=== PATIENT | male | born 1950 | race Caucasian/White ===

== ENCOUNTER 2017-07-08 10:22 | Day surgery (SDC) | payer MEDICARE, OTHER ==
[~2017-07-08] VITALS: Ht 165.1 cm; Wt 85.7 kg
[~2017-07-08 10:22] MED LIST: FENOFIBRATE40 MG PO; NEXIUM40 M1 PO; VITAMIN D2000 UNI1 PO
[2017-07-08 12:18] VITALS: BP 145/84
== END 2017-07-08 12:18 | disposition home or self-care (01) ==
LOC: ENDO 10:22 → ORM 17:00
PROVIDERS: ATTEND Internal Medicine Gastroenterology
PROC: 0DB48ZX Excision of Esophagogastric Junction, Via Natural or Artificial Opening Endoscopic, Diagnostic (ICD-10-PCS; principal; 2017-07-08)
PROC: 0DBH8ZX Excision of Cecum, Via Natural or Artificial Opening Endoscopic, Diagnostic (ICD-10-PCS; 2017-07-08)
PROC: 0DBL8ZX Excision of Transverse Colon, Via Natural or Artificial Opening Endoscopic, Diagnostic (ICD-10-PCS; 2017-07-08)
PROC: 0DBN8ZX Excision of Sigmoid Colon, Via Natural or Artificial Opening Endoscopic, Diagnostic (ICD-10-PCS; 2017-07-08)
DX: K21.0 Gastro-esophageal reflux disease with esophagitis (principal); Z12.11 Encounter for screening for malignant neoplasm of colon; K29.70 Gastritis, unspecified, without bleeding; K31.9 Disease of stomach and duodenum, unspecified; K63.5 Polyp of colon; D12.5 Benign neoplasm of sigmoid colon; D12.3 Benign neoplasm of transverse colon; K64.4 Residual hemorrhoidal skin tags; K64.8 Other hemorrhoids; K57.30 Diverticulosis of large intestine without perforation or abscess without bleeding; E78.00 Pure hypercholesterolemia, unspecified; C95.90 Leukemia, unspecified not having achieved remission; F17.210 Nicotine dependence, cigarettes, uncomplicated; Z86.010 Personal history of colon polyps

== ENCOUNTER 2017-08-21 12:08 | Emergency (ER) | payer MEDICARE, OTHER ==
[~2017-08-21] VITALS: Ht 165.1 cm; Wt 85.9 kg
[2017-08-21 12:40] LABS: HEMATOCRIT 45.3 % (39.0-50.0); HEMOGLOBIN 15.8 g/dl (14.0-18.0); IMMATURE GRANULOCYTES 0.2 % (0.0-1.0); MEAN CELL VOLUME 95.2 fL CALC (80.0-100.0); MEAN CORPUSCULAR HGB 33.2 pG CALC (26.0-32.0); MEAN CORPUSCULAR HGB CONC 34.9 g/L CALC (32.0-36.0); NEUT# 3.05 thou/uL (1.82-7.42); RED BLOOD COUNT 4.76 mill/uL (4.70-6.10); RED CELL DISTRI WIDTH 12.9 % (11.5-15.5)
[2017-08-21 12:57] LABS: ALBUMIN 4.2 g/dL (3.2-5.0); ALKALINE PHOSPHATASE 68 u/l (38-126); ANION GAP 17 (6-22 (CALC)); BILIRUBIN, TOTAL 0.8 mg/dL (0.0-1.4); BUN 13 mg/dL (8-23); BUN/CREATININE RATIO 12 (12-20 (CALC)); CALCIUM 11.9 mg/dL (8.4-10.2); CARBON DIOXIDE 20 mmol/l (22-30); CHLORIDE 110 mmol/l (95-108); GFR > 60 ML/MIN (>=60 (CALC)); GFR FOR AFR.AMER. > 60 ML/MIN (>=60 (CALC)); GLUCOSE 146 mg/dL (82-115); LIPASE 99 u/l (23-300); SGOT/AST 112 u/l (19-48); SGPT/ALT 184 u/l (11-66); SODIUM 142 mmol/l (137-146); TOTAL PROTEIN 6.9 g/dL (6.3-8.2)
[2017-08-21 16:11] VITALS: BP 138/70
== END 2017-08-21 16:13 | disposition home or self-care (01) ==
LOC: ED 12:08
PROVIDERS: Emergency Medicine
DX: R07.89 Other chest pain (principal); F17.210 Nicotine dependence, cigarettes, uncomplicated; Z85.72 Personal history of non-Hodgkin lymphomas

== ENCOUNTER 2019-02-07 10:25 | Observation (INO) | payer MEDICARE, OTHER ==
[~2019-02-07] VITALS: Ht 165.1 cm; Wt 89.0 kg
[~2019-02-07 10:25] MED LIST changes: -NEXIUM40 M1 PO
[2019-02-07] MEDS ORDERED: METFORMIN500 M2 PO (10:44)
[2019-02-07] MEDS ORDERED: NEXIUM40 M1 PO (10:45)
[2019-02-07 11:09] LABS: HEMATOCRIT 42.6 % (39.0-50.0); HEMOGLOBIN 14.5 g/dl (14.0-18.0); IMMATURE GRANULOCYTES 0.2 % (0.0-5.0); MEAN CELL VOLUME 94.2 fL CALC (80.0-100.0); MEAN CORPUSCULAR HGB 32.1 pG CALC (26.0-32.0); NEUT# 2.89 thou/uL (1.82-7.42); RED BLOOD COUNT 4.52 mill/uL (4.70-6.10); RED CELL DISTRI WIDTH 13.3 % (11.5-15.5)
[2019-02-07 11:32] LABS: ALBUMIN 4.5 g/dL (3.2-5.0); ALKALINE PHOSPHATASE 70 u/l (38-126); ANION GAP 13 (6-22 (CALC)); BILIRUBIN, TOTAL 0.8 mg/dL (0.0-1.4); BUN 10 mg/dL (8-23); BUN/CREATININE RATIO 13 (12-20 (CALC)); CARBON DIOXIDE 26 mmol/l (22-30); CHLORIDE 105 mmol/l (95-108); CREATININE 0.8 mg/dL (0.7-1.3); GFR > 60 ML/MIN (>=60 (CALC)); GFR FOR AFR.AMER. > 60 ML/MIN (>=60 (CALC)); POTASSIUM 4.3 mmol/l (3.5-5.1); SGOT/AST 140 u/l (19-48); SODIUM 140 mmol/l (137-146); TOTAL PROTEIN 7.3 g/dL (6.3-8.2)
[2019-02-07 13:05] VITALS: BP 153/83
[2019-02-07 16:15] VITALS: BP 144/86
[2019-02-07 19:05] VITALS: BP 147/87
[2019-02-08 00:19] VITALS: BP 149/86
[2019-02-08 04:37] VITALS: BP 129/85
[2019-02-08 05:47] LABS: HEMATOCRIT 40.5 % (39.0-50.0); HEMOGLOBIN 13.9 g/dl (14.0-18.0); MEAN CELL VOLUME 94.6 fL CALC (80.0-100.0); MEAN CORPUSCULAR HGB 32.5 pG CALC (26.0-32.0); MEAN CORPUSCULAR HGB CONC 34.3 g/L CALC (32.0-36.0); RED BLOOD COUNT 4.28 mill/uL (4.70-6.10); RED CELL DISTRI WIDTH 13.3 % (11.5-15.5)
[2019-02-08 06:02] LABS: ALBUMIN 3.8 g/dL (3.2-5.0); ALKALINE PHOSPHATASE 59 u/l (38-126); ANION GAP 10 (6-22 (CALC)); BILIRUBIN, TOTAL 0.9 mg/dL (0.0-1.4); BUN 11 mg/dL (8-23); BUN/CREATININE RATIO 14 (12-20 (CALC)); CALCULATED LDLCHOLESTEROL 92 mg/dL (62-129 (CALC)); CARBON DIOXIDE 24 mmol/l (22-30); CHLORIDE 111 mmol/l (95-108); CHOLESTEROL HDL RATIO 5.2 (<4.4 (CALC)); CREATININE 0.8 mg/dL (0.7-1.3); GFR > 60 ML/MIN (>=60 (CALC)); GFR FOR AFR.AMER. > 60 ML/MIN (>=60 (CALC)); HDL CHOLESTEROL 29 mg/dL (>=40); MAGNESIUM 1.8 mg/dL (1.6-2.3); POTASSIUM 4.5 mmol/l (3.5-5.1); SGOT/AST 107 u/l (19-48); SODIUM 140 mmol/l (137-146); TOTAL CHOLESTEROL 153 mg/dl (0-199); TOTAL PROTEIN 6.3 g/dL (6.3-8.2); TOTAL TRIGLYCERIDES 160 mg/dl (30-149); VLDL CHOLESTROL 32 mg/dl (4-45 (CALC))
[2019-02-08 07:56] VITALS: BP 159/93
[2019-02-08] MEDS ORDERED: VIT E COMPLX400 UNIT PO (10:50)
[2019-02-08 11:05] VITALS: BP 117/93
== END 2019-02-08 12:18 | disposition home or self-care (01) ==
LOC: ED 10:25 → ED-I 11:45 → ED 12:23 → MS2 12:24
PROVIDERS: Family Medicine; ADMIT Internal Medicine; ATTEND Internal Medicine
DX: R07.89 Other chest pain (principal); K80.20 Calculus of gallbladder without cholecystitis without obstruction; K76.0 Fatty (change of) liver, not elsewhere classified; E83.52 Hypercalcemia; E78.5 Hyperlipidemia, unspecified; E11.9 Type 2 diabetes mellitus without complications; J44.9 Chronic obstructive pulmonary disease, unspecified; D72.820 Lymphocytosis (symptomatic); K21.9 Gastro-esophageal reflux disease without esophagitis; F17.200 Nicotine dependence, unspecified, uncomplicated; Z79.84 Long term (current) use of oral hypoglycemic drugs; Z85.72 Personal history of non-Hodgkin lymphomas; Z85.46 Personal history of malignant neoplasm of prostate

== ENCOUNTER 2019-05-17 07:29 | Day surgery (SDC) | payer MEDICARE, OTHER ==
[~2019-05-17] VITALS: Ht 165.1 cm; Wt 86.2 kg
[~2019-05-17 07:29] MED LIST changes: +METFORMIN500 M2 PO; +NEXIUM40 M1 PO; +PROAIR HFA108 MCG/AC; +VIT E COMPLX400 UNIT PO
[2019-05-17] MEDS ORDERED: PERCOCET 5/325M1 TAB PO (10:04)
[2019-05-17 11:33] VITALS: BP 149/82
== END 2019-05-17 11:30 | disposition home or self-care (01) ==
LOC: ORM 07:29
PROVIDERS: ATTEND Surgery
PROC: 0FT44ZZ Resection of Gallbladder, Percutaneous Endoscopic Approach (ICD-10-PCS; principal; 2019-05-17)
DX: K80.10 Calculus of gallbladder with chronic cholecystitis without obstruction (principal); E11.9 Type 2 diabetes mellitus without complications; F17.210 Nicotine dependence, cigarettes, uncomplicated; Z79.84 Long term (current) use of oral hypoglycemic drugs
CPT/HCPCS: J0131; J1100

== ENCOUNTER 2021-03-29 08:56 | Emergency (ER) | payer MEDICARE, OTHER ==
[~2021-03-29] VITALS: Ht 165.1 cm; Wt 81.0 kg
[~2021-03-29 08:56] MED LIST changes: +PERCOCET 5/325M1 TAB PO
[2021-03-29] MEDS ORDERED: FLOXIN OTIC0.3 % AD (09:10)
[2021-03-29 09:16] VITALS: BP 160/84
== END 2021-03-29 09:26 | disposition home or self-care (01) ==
LOC: ED 08:56
DX: H60.91 Unspecified otitis externa, right ear (principal); E11.9 Type 2 diabetes mellitus without complications; F17.200 Nicotine dependence, unspecified, uncomplicated; Z79.84 Long term (current) use of oral hypoglycemic drugs

== ENCOUNTER 2022-01-09 15:12 | Emergency (ER) | payer MEDICARE, OTHER ==
[~2022-01-09] VITALS: Ht 167.6 cm; Wt 85.9 kg
[~2022-01-09 15:12] MED LIST changes: +FLOXIN OTIC0.3 % AD
[2022-01-09 16:01] LABS: HEMOGLOBIN 13.4 g/dl (14.0-18.0); IMMATURE GRANULOCYTES 0.2 % (0.0-5.0); MEAN CELL VOLUME 95.9 fL CALC (80.0-100.0); MEAN CORPUSCULAR HGB 32.7 pG CALC (26.0-32.0); MEAN CORPUSCULAR HGB CONC 34.1 g/dL CAL (32.0-36.0); NEUT# 2.78 thou/uL (1.82-7.42); RED BLOOD COUNT 4.1 mill/uL (4.70-6.10); RED CELL DISTRI WIDTH 13.4 % (11.5-15.5)
[2022-01-09 16:22] LABS: ALBUMIN 3.7 g/dL (3.2-5.0); ALKALINE PHOSPHATASE 70 u/l (38-126); ANION GAP 10 (6-22 (CALC)); BUN 12 mg/dL (8-23); BUN/CREATININE RATIO 15 (12-20 (CALC)); CARBON DIOXIDE 21 mmol/l (22-30); CHLORIDE 107 mmol/l (95-108); CREATININE 0.8 mg/dL (0.7-1.3); GFR FOR AFR.AMER. > 60 ML/MIN (>=60 (CALC)); GFR OTHER RACES > 60 ML/MIN (>=60 (CALC)); SGOT/AST 29 u/l (19-48); SODIUM 135 mmol/l (137-146); TOTAL PROTEIN 6.2 g/dL (6.3-8.2)
[2022-01-09 16:27] LABS: BILIRUBIN, TOTAL 0.3 mg/dL (0.0-1.4)
[2022-01-09 16:30] LABS: HEMATOCRIT 39.3 % (39.0-50.0)
[2022-01-09] MEDS ORDERED: ZITHROMAX250 MG PO (17:26)
[2022-01-09 17:42] VITALS: BP 138/77
== END 2022-01-09 17:50 | disposition home or self-care (01) ==
LOC: ED 15:12
PROVIDERS: Emergency Medicine
DX: J06.9 Acute upper respiratory infection, unspecified (principal); I10 Essential (primary) hypertension; E11.9 Type 2 diabetes mellitus without complications; F17.210 Nicotine dependence, cigarettes, uncomplicated; Z79.84 Long term (current) use of oral hypoglycemic drugs; Z20.822 Contact with and (suspected) exposure to COVID-19

== ENCOUNTER 2022-01-11 12:57 | Emergency (ER) | payer MEDICARE, OTHER ==
[~2022-01-11] VITALS: Ht 167.6 cm; Wt 84.0 kg
[~2022-01-11 12:57] MED LIST changes: +ZITHROMAX250 MG PO
[2022-01-11] MEDS ORDERED: ZYRTEC10 MG PO (15:24)
[2022-01-11] MEDS ORDERED: MEDDOSEPAK PO (15:24)
[2022-01-11] MEDS ORDERED: VENTOLIN HFA108 MCG IN (15:24)
[2022-01-11 15:28] VITALS: BP 145/85
== END 2022-01-11 15:41 | disposition home or self-care (01) ==
LOC: ED 12:57
DX: J44.1 Chronic obstructive pulmonary disease with (acute) exacerbation (principal); J06.9 Acute upper respiratory infection, unspecified; I10 Essential (primary) hypertension; E11.9 Type 2 diabetes mellitus without complications; F17.210 Nicotine dependence, cigarettes, uncomplicated; Z79.84 Long term (current) use of oral hypoglycemic drugs; Z20.822 Contact with and (suspected) exposure to COVID-19

== ENCOUNTER 2022-02-07 14:50 | Emergency (ER) | payer MEDICARE, OTHER ==
[~2022-02-07] VITALS: Ht 167.6 cm; Wt 84.1 kg
[~2022-02-07 14:50] MED LIST changes: +MEDDOSEPAK PO; +VENTOLIN HFA108 MCG IN; +ZYRTEC10 MG PO
[2022-02-07 14:55] VITALS: BP 130/95
[2022-02-07 15:01] VITALS: BP 129/82
[2022-02-07 15:15] VITALS: BP 137/91
[2022-02-07 15:26] LABS: HEMATOCRIT 36.3 % (39.0-50.0); HEMOGLOBIN 12.2 g/dl (14.0-18.0); IMMATURE GRANULOCYTES 0.1 % (0.0-5.0); MEAN CELL VOLUME 96.5 fL CALC (80.0-100.0); MEAN CORPUSCULAR HGB 32.4 pG CALC (26.0-32.0); MEAN CORPUSCULAR HGB CONC 33.6 g/dL CAL (32.0-36.0); PLATELET COUNT 138 thou/uL (130-400); RED BLOOD COUNT 3.76 mill/uL (4.70-6.10); RED CELL DISTRI WIDTH 13.6 % (11.5-15.5)
[2022-02-07 15:27] LABS: MANUAL DIFFERENTIAL YES
[2022-02-07 15:31] VITALS: BP 128/82
[2022-02-07 15:32] LABS: PLATELET ESTIMATE NORMAL
[2022-02-07 15:46] VITALS: BP 123/89
[2022-02-07 16:03] VITALS: BP 123/89
== END 2022-02-07 16:08 | disposition home or self-care (01) ==
LOC: ED 14:50
PROVIDERS: Family Medicine
DX: R04.0 Epistaxis (principal); I10 Essential (primary) hypertension; E11.9 Type 2 diabetes mellitus without complications; Z79.84 Long term (current) use of oral hypoglycemic drugs; F17.210 Nicotine dependence, cigarettes, uncomplicated

== ENCOUNTER 2022-02-15 09:23 | Emergency (ER) | payer MEDICARE, OTHER ==
[~2022-02-15] VITALS: Ht 167.6 cm; Wt 86.3 kg
[2022-02-15] VITALS (12 sets, daily range): BP systolic 125–146; BP diastolic 65–77
[2022-02-15 10:01] LABS: GFR FOR AFR.AMER. > 60 ML/MIN (>=60 (CALC)); GFR OTHER RACES > 60 ML/MIN (>=60 (CALC))
[2022-02-15 10:03] LABS: HEMATOCRIT 16.5 % (39.0-50.0); IMMATURE GRANULOCYTES 1.1 % (0.0-5.0); MEAN CORPUSCULAR HGB 33.3 pG CALC (26.0-32.0); MEAN CORPUSCULAR HGB CONC 30.3 g/dL CAL (32.0-36.0); PLATELET COUNT 195 thou/uL (130-400); RED CELL DISTRI WIDTH 21.7 % (11.5-15.5)
[2022-02-15 10:04] LABS: MANUAL DIFFERENTIAL YES
[2022-02-15] MEDS ORDERED: VITAMIN B-121000 MC3 (10:16)
[2022-02-15] MEDS ORDERED: AMLODIPINE BESY10 MG PO (10:17)
[2022-02-15] MEDS ORDERED: LOSARTAN POTASS25 MG PO (10:17)
[2022-02-15 10:18] LABS: BAND 0 % (0-8); PLATELET ESTIMATE NORMAL
[2022-02-15] MEDS ORDERED: TRAMADOL HCL50 MG PO (10:18)
[2022-02-15 10:20] LABS: INTERNATIONAL NORMALIZED RATIO 1.1 RATIO (0.7-1.3); PROTHROMBIN TIME 11.1 SECONDS (9.0-12.5)
[2022-02-15 10:21] LABS: ALKALINE PHOSPHATASE 48 u/l (38-126); BUN 21 mg/dL (8-23); BUN/CREATININE RATIO 24 (12-20 (CALC)); CHLORIDE 101 mmol/l (95-108); CREATININE 0.9 mg/dL (0.7-1.3); GFR FOR AFR.AMER. > 60 ML/MIN (>=60 (CALC)); GFR OTHER RACES > 60 ML/MIN (>=60 (CALC)); POTASSIUM 4.7 mmol/l (3.5-5.1); SGOT/AST 26 u/l (19-48); SODIUM 132 mmol/l (137-146)
[2022-02-15 10:42] LABS: ALBUMIN 2.9 g/dL (3.2-5.0); ANION GAP 22 (6-22 (CALC)); BILIRUBIN, TOTAL 0.4 mg/dL (0.0-1.4); CARBON DIOXIDE 14 mmol/l (22-30); TOTAL PROTEIN 5.1 g/dL (6.3-8.2)
== END 2022-02-15 13:41 | disposition short-term general hospital (02) ==
LOC: ED 09:23
PROVIDERS: Family Medicine
PROC: 30233N1 Transfusion of Nonautologous Red Blood Cells into Peripheral Vein, Percutaneous Approach (ICD-10-PCS; principal; 2022-02-15)
PROC: 30233N1 Transfusion of Nonautologous Red Blood Cells into Peripheral Vein, Percutaneous Approach (ICD-10-PCS; 2022-02-15)
PROC: 2Y41X5Z Packing of Nasal Region using Packing Material (ICD-10-PCS; 2022-02-15)
DX: R04.0 Epistaxis (principal); D62 Acute posthemorrhagic anemia; I10 Essential (primary) hypertension; E11.9 Type 2 diabetes mellitus without complications; F17.210 Nicotine dependence, cigarettes, uncomplicated
CPT/HCPCS: P9016